=== PATIENT | female | born 1975 | race Asian ===

== ENCOUNTER 2025-08-23 09:02 | Inpatient (IN) | payer MEDICAID ==
[~2025-08-23] VITALS: Ht 165.1 cm; Wt 148.8 kg
[2025-08-23 09:03] VITALS: O2SAT 96
[2025-08-23] MEDS ORDERED: MORPHINE SULFATE 4 MG/ML INJ (FOR IV/IM USE) IV ONE (09:15)
[2025-08-23 09:54] LABS: HEMATOCRIT. 38.7 % (36.0-48.0); HEMOGLOBIN. 12.2 g/dL (12.0-16.0); MEAN PLATELET VOLUME 7.3 fl (7.4-10.4); PLATELET 382 x1000/uL (130-400); RED BLOOD CELL COUNT 4.59 mill/uL (4.2-5.4); RED CELL DISTRIBUTION WIDTH 15.3 % (11.6-14.6)
[2025-08-23 10:17] LABS: CREATININE 1.3 mg/dL (0.6-1.0)
[2025-08-23 10:18] LABS: UREA NITROGEN BLOOD 17.0 mg/dL (9-23)
[2025-08-23 10:28] LABS: BAND% 12.0 % (1.0-6.0); LYMPHOCYTES % MANUAL 6.0 % (20.0-60.0); MONOCYTES % MANUAL 2.0 % (2.0-8.0); NEUTROPHILS % MANUAL 80.0 % (45.0-75.0)
[2025-08-23 10:29] LABS: PLATELET ESTIMATE NORMAL
[2025-08-23] MEDS: PIPERACILLIN/TAZO 3.375G/50ML 50 ML IV ONE (10:51)
[2025-08-23] MEDS: SODIUM CHLORIDE 0.9% (SEPSIS BOLUS) IV ONE (10:52)
[2025-08-23] MEDS: MORPHINE SULFATE 4 MG/ML INJ (FOR IV/IM USE) IV NR (11:02)
[2025-08-23 11:08] LABS: INR 1.1
[2025-08-23 11:10] LABS: ASPARTATE AMINOTRANSFERASE 43 IU/L (<34); BILIRUBIN DIRECT 0.4 mg/dL (<=3.0); BILIRUBIN TOTAL 1.2 mg/dL (0.1-1.0); PROTEIN TOTAL 7.4 g/dL (6.0-8.3)
[2025-08-23] MEDS: VANCOMYCIN 1G PREMIX 200 ML IV ONE (11:12)
[2025-08-23] MEDS ORDERED: ONDANSETRON HCL 4MG/2ML INJ IV PRN (11:30)
[2025-08-23] MEDS ORDERED: IPRATROPIUM/ALBUTEROL 0.5-3(2.5)MG/3ML NEB HHN PRN (11:30)
[2025-08-23] MEDS: SODIUM CHLORIDE 0.9% 1,000 ML IV SCH (11:30)
[2025-08-23] MEDS ORDERED: SODIUM CHLORIDE 0.9% 1,000 ML IV NR (11:30)
[2025-08-23] MEDS ORDERED: ACETAMINOPHEN 325MG TABLET PO PRN ×2 (11:30)
[2025-08-23] MEDS ORDERED: DOCUSATE SODIUM 100MG CAPSULE PO PRN (11:30)
[2025-08-23] MEDS ORDERED: GUAIFENESIN 200MG/10ML SUGAR FREE UDC PO PRN (11:30)
[2025-08-23] MEDS ORDERED: CLINDAMYCIN 900 MG in DEXTROSE 5% WATER 50 ML IV SCH (11:30)
[2025-08-23] MEDS ORDERED: MORPHINE SULFATE 10 MG/ML INJ (NOT FOR IM USE) IV PRN (11:30)
[2025-08-23] MEDS: FAMOTIDINE 20MG/2ML VIAL IV SCH (11:43)
[2025-08-23] MEDS: VANCOMYCIN 1G PREMIX 200 ML IV NR (11:45)
[2025-08-23] MEDS ORDERED: NALOXONE HCL 0.4MG/ML VIAL IV PRN (11:45)
[2025-08-23] MEDS: CLINDAMYCIN 900MG PREMIX 50 ML IV SCH (12:00)
[2025-08-23] MEDS: ACETAMINOPHEN 1000MG/100ML 100 ML IV NR (12:00)
[2025-08-23] MEDS ORDERED: HYDROMORPHONE HCL/PF 1MG/ML INJ IV PRN (12:00)
[2025-08-23] MEDS: ENOXAPARIN 40MG/0.4ML SYR SUBCUT SCH (13:19)
[2025-08-23] MEDS: PIPERACILLIN/TAZO 3.375G/50ML 50 ML IV SCH (13:20)
[2025-08-23] MEDS ORDERED: IOHEXOL-300 100 ML BOTTLE ONE (13:27)
[2025-08-23] MEDS: KETOROLAC 30MG/ML VIAL IV PRN (13:33)
[2025-08-23 14:12] LABS: PHOSPHORUS 2.8 mg/dL (2.5-4.9)
[2025-08-23 14:19] LABS: HCG SCREEN NEGATIVE
[2025-08-23 14:33] LABS: TROPONIN I HIGH SENSITIVITY 140 ng/L (3.0-34)
[2025-08-23 14:53] VITALS: BP 168/110; PULSE 98; RESP 20; TEMP 36.7; O2SAT 96
[2025-08-23 14:53] LABS: HEPATITIS A AB IGM NEGATIVE (Negative); HEPATITIS B CORE AB IGM NEGATIVE (Negative)
[2025-08-23 14:54] LABS: HEPATITIS C AB NON REACTIVE (Neg) (Negative)
[2025-08-23 14:56] VITALS: BP 168/110; PULSE 98; RESP 20; TEMP 36.696
[2025-08-23 16:00] VITALS: BP 177/102; PULSE 92; RESP 20; TEMP 36.2; O2SAT 97
[2025-08-23 20:00] VITALS: BP 172/110; PULSE 99; RESP 19; TEMP 36.4; O2SAT 95
[2025-08-23] MEDS: CLONIDINE 0.1MG TABLET PO PRN (21:05)
[2025-08-24] VITALS: BP 173/110; PULSE 100; RESP 19; TEMP 36.6; O2SAT 96
[2025-08-24 01:52] LABS: TROPONIN I HIGH SENSITIVITY 27 ng/L (3.0-34)
[2025-08-24 04:00] VITALS: BP 170/119; PULSE 107; RESP 19; TEMP 36.8; O2SAT 96
[2025-08-24] MEDS ORDERED: PIPERACILLIN/TAZO 3.375G/50ML 50 ML IV SCH (06:00)
[2025-08-24 08:00] VITALS: BP 179/111; PULSE 107; RESP 16; TEMP 36.6; O2SAT 97
[2025-08-24] MEDS: VANCOMYCIN 1.25GM/250ML 250 ML IV SCH (09:00)
[2025-08-24] MEDS: AMLODIPINE 10MG TABLET PO SCH (11:30)
[2025-08-24 12:00] VITALS: BP 164/98; PULSE 100; RESP 15; TEMP 36.6; O2SAT 97
[2025-08-24] MEDS: CARVEDILOL 6.25 MG TABLET PO SCH (14:28)
[2025-08-24 16:00] VITALS: BP 116/71; PULSE 99; RESP 16; TEMP 36.3; O2SAT 98
[2025-08-24] MEDS: ISOSORBIDE MONONITRATE 30MG TABLET SR 24HR PO SCH (17:13)
[2025-08-25] VITALS: BP 137/84; PULSE 86; RESP 17; TEMP 37.1; O2SAT 96
[2025-08-25] MEDS: CLINDAMYCIN HCL 150MG CAPSULE PO NR (00:37)
[2025-08-25 04:00] VITALS: BP 148/83; PULSE 84; RESP 19; TEMP 36.8; O2SAT 97
[2025-08-25 08:00] VITALS: BP 152/101; PULSE 85; RESP 18; TEMP 36.6; O2SAT 96
[2025-08-25 12:00] VITALS: BP 116/78; PULSE 78; RESP 17; TEMP 36.4; O2SAT 95
[2025-08-25] MEDS ORDERED: FAMO-135 MT (14:52)
[2025-08-25] MEDS ORDERED: ISOS30TA91 PO (14:52)
[2025-08-25] MEDS ORDERED: AMOX1TAB16 MT (14:52)
[2025-08-25] MEDS ORDERED: DICL50TA7 MT (14:52)
[2025-08-25] MEDS ORDERED: COR6 PO (14:52)
[2025-08-25 16:00] VITALS: BP 132/76; PULSE 82; RESP 18; TEMP 36.2; O2SAT 97
[2025-08-25 20:00] VITALS: BP 142/86; PULSE 85; RESP 19; TEMP 36.7; O2SAT 96
[2025-08-26] VITALS: BP 127/76; PULSE 85; RESP 20; TEMP 36.6; O2SAT 95
[2025-08-26 08:00] VITALS: BP 147/97; PULSE 83; RESP 18; TEMP 36.4; O2SAT 95
[2025-08-26 12:00] VITALS: BP 132/85; PULSE 81; RESP 18; TEMP 36.6; O2SAT 96
[2025-08-26] MEDS ORDERED: CARV12.545 MT (15:42)
[2025-08-26] MEDS ORDERED: DOXY100C5 MT (15:42)
[2025-08-26 16:00] VITALS: BP 142/86; PULSE 86; RESP 18; TEMP 36.7; O2SAT 98
[2025-08-26] MEDS: DOXYCYCLINE HYCLATE 100MG CAPSULE PO SCH (17:10)
[2025-08-26] MEDS: CARVEDILOL 12.5MG TABLET PO SCH (21:00)
[2025-08-27] VITALS: BP 144/81; PULSE 91; RESP 19; TEMP 36.6; O2SAT 96
[2025-08-27 04:00] VITALS: BP 141/90; PULSE 88; RESP 18; TEMP 36.6; O2SAT 97
[2025-08-27 08:00] VITALS: BP 157/49; PULSE 78; RESP 20; TEMP 36.2; O2SAT 97
[2025-08-27 12:00] VITALS: BP 157/49; PULSE 78; RESP 20; TEMP 36.2
[2025-08-27] MEDS ORDERED: CARV25TA47 MT (15:44)
[2025-08-27] MEDS ORDERED: AMLO10TA80 MT (15:45)
[2025-08-27 16:00] VITALS: BP 147/84; PULSE 83; RESP 16; TEMP 36.6; O2SAT 96
[2025-08-27 20:00] VITALS: BP 160/106; PULSE 84; RESP 18; TEMP 37.1; O2SAT 97
[2025-08-27] MEDS: CARVEDILOL 12.5MG TABLET PO SCH (22:10)
[2025-08-28] VITALS: BP 139/69; PULSE 77; RESP 18; TEMP 37.2; O2SAT 98
[2025-08-28 04:00] VITALS: BP 135/70; PULSE 78; RESP 19; TEMP 36.6; O2SAT 98
[2025-08-28 08:00] VITALS: BP 133/68; PULSE 76; RESP 20; TEMP 36.1; O2SAT 95
[2025-08-28 12:00] VITALS: BP 128/86; PULSE 75; RESP 19; TEMP 36.4; O2SAT 95
[2025-08-28 16:00] VITALS: BP 108/63; PULSE 77; RESP 18; TEMP 36.1; O2SAT 96
[2025-08-28 20:00] VITALS: BP 149/78; PULSE 80; RESP 18; TEMP 36.8; O2SAT 99
[2025-08-29] VITALS: BP 132/69; PULSE 82; RESP 20; TEMP 36.8; O2SAT 99
[2025-08-29 04:00] VITALS: BP 139/64; PULSE 84; RESP 20; TEMP 36.8; O2SAT 99
[2025-08-29 08:00] VITALS: BP 148/82; PULSE 82; RESP 18; TEMP 36.7; O2SAT 96
[2025-08-29 12:00] VITALS: BP 133/71; PULSE 76; RESP 18; TEMP 36.6; O2SAT 100
[2025-08-29 16:00] VITALS: PULSE 76; RESP 18; TEMP 36.3; O2SAT 95
[2025-08-29 20:00] VITALS: BP 140/78; PULSE 80; RESP 18; TEMP 36.9; O2SAT 99
[2025-08-30] VITALS: BP 133/67; PULSE 78; RESP 18; TEMP 36.8; O2SAT 99
[2025-08-30 04:00] VITALS: BP 130/69; PULSE 80; RESP 18; TEMP 36.7; O2SAT 99
[2025-08-30 08:00] VITALS: BP 143/70; PULSE 86; RESP 18; TEMP 37.1; O2SAT 98
[2025-08-30 16:00] VITALS: BP 138/72; PULSE 88; RESP 18; TEMP 36.4; O2SAT 97
[2025-08-30 20:00] VITALS: BP 140/62; PULSE 66; RESP 17; TEMP 36.6; O2SAT 96
[2025-08-31] VITALS: BP 137/78; PULSE 70; RESP 16; TEMP 36.5; O2SAT 96
[2025-08-31 04:00] VITALS: BP 148/78; PULSE 77; RESP 18; TEMP 36.2; O2SAT 99
[2025-08-31 08:00] VITALS: PULSE 79; RESP 16; TEMP 36.2; O2SAT 97
[2025-08-31 12:00] VITALS: BP 142/97; PULSE 74; RESP 17; TEMP 36.1; O2SAT 98
[2025-08-31 16:00] VITALS: BP 155/90; PULSE 65; RESP 18; TEMP 36.2; O2SAT 97
[2025-08-31 20:00] VITALS: BP 126/60; PULSE 82; RESP 18; TEMP 36.7; O2SAT 96
[2025-09-01] VITALS: BP 138/90; PULSE 79; RESP 17; TEMP 36.2; O2SAT 96
[2025-09-01 04:00] VITALS: BP 120/86; PULSE 74; RESP 18; TEMP 36.4; O2SAT 100
== END 2025-09-01 07:00 | disposition home or self-care (01) | DRG 720 ==
LOC: ER 09:19 → 6WST 10:34 → ENRESERV 13:19 → 6WST 14:46 → 6EST 08-26 21:30
PROVIDERS: ADMIT Internal Medicine; ATTEND Internal Medicine
DX: A41.9 Sepsis, unspecified organism (principal); N17.0 Acute kidney failure with tubular necrosis; I11.0 Hypertensive heart disease with heart failure; I21.A1 Myocardial infarction type 2; I50.9 Heart failure, unspecified; K76.0 Fatty (change of) liver, not elsewhere classified; E66.01 Morbid (severe) obesity due to excess calories; Z68.43 Body mass index [BMI] 50.0-59.9, adult; E83.51 Hypocalcemia; E87.1 Hypo-osmolality and hyponatremia; L03.115 Cellulitis of right lower limb; S80.821A Blister (nonthermal), right lower leg, initial encounter; R73.9 Hyperglycemia, unspecified; X58.XXXA Exposure to other specified factors, initial encounter; Z53.20 Procedure and treatment not carried out because of patient's decision for unspecified reasons; Z59.00 Homelessness unspecified; Y93.89 Activity, other specified; Y92.89 Other specified places as the place of occurrence of the external cause; Y99.8 Other external cause status; Z79.899 Other long term (current) drug therapy
CPT/HCPCS: 36415; 71045; 73700; 80048; 80076; 82550; 82728; 82962; 83036; 83540; 83550; 83605; 83735; 84100; 84145; 84484; 84703; 85025; 86705; 86709; 86850; 86900; 87070; 87077; 87186; 87340; 93005; 93971; 97161; 99291; A4606; A6449; J1308; J1650; J1885; J2270; J2543; J3373; J3490; J7030; Q9967; J0131